=== PATIENT | female | born 1995 | race Caucasian/White ===

== ENCOUNTER 2017-03-31 01:32 | Emergency (ER) | payer SELFPAY ==
[2017-03-31] MEDS ORDERED: Zofran 4 MG/2 ML VIAL IV ONE (02:02)
[2017-03-31] MEDS ORDERED: Sodium Chloride 0.9% 1000 ML 1,000 ML IV STA (02:02)
[2017-03-31] MEDS ORDERED: Zofran 4 MG/2 ML VIAL ONE (02:13)
[2017-03-31] MEDS ORDERED: Sodium Chloride 0.9% 1000 ML 1,000 ML ONE (02:13)
[2017-03-31 02:14] LABS: BASOPHIL % 0.3 % (0.0-0.4); Eosinophil % 1.2 % (0.00-5.0); Granulocytes % 60.8 % (36.0-66.0); Lymphocytes % 29.8 % (24.0-44.0); Mean Cell Volume 84.3 fl (78-100); Mean Corpuscular Hemoglobin 29.5 pg (26-32); Mean Platelet Volume 10.3 fl (6-9.5); Monocytes % 7.9 % (0.0-12.0); Platelet Count 296 K/mm3 (150-450); Red Blood Count 5.48 M/mm3 (4.1-5.4); Red Cell Distribution Width 12.5 % (11.5-14.0); White Blood Count 10.1 K/mm3 (4.0-10.5)
[2017-03-31 02:20] LABS: LIPASE 166 U/L (73-393)
[2017-03-31 02:23] LABS: ANION GAP 13.7 MEQ/L (5-15); BLOOD UREA NITROGEN 14 mg/dL (9-20); CHLORIDE 107 mEq/L (98-107); Carbon Dioxide 25.5 mEq/L (21-32); Glucose 102 MG/DL (70-110); Potassium 3.9 mEq/L (3.5-5.1); SODIUM 142 mEq/L (136-145)
[2017-03-31 02:49] LABS: ADD URINE CULTURE? NO (NO); Bilirubin NEGATIVE (NEGATIVE); Blood NEGATIVE Ery/ul (0-5); COMPLETE URINE MICROSCOPIC? NO; Collection Type CATH; Glucose NEGATIVE (NEGATIVE); Leukocyte Esterase NEGATIVE (NEGATIVE)
--- NOTE | 2017-03-31 03:38 | ERPHSYRPT ---
- History of Present Illness Time Seen by Provider: 03/31/17 01:40 Historian: patient Exam Limitations: clinical condition Patient Subjective Stated Complaint: "I have had the pain all day, but when I got to work, it was alot worse. I was outside talking to my boyfriend. i walked back in and just remember falling. My head didn't start hurting until I fell. The pain in my side is like a piercing pain. 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 STATES HAD SYNCOPE EPISODE TONIGHT, STRUCK HER FOREHEAD IN PARKING LOT AT WORK AND HAS NECK PAIN. DENIES LOST OF CONSCIOUSNESS, BLURRED VISION, NUMBNESS , TINGLING OR WEAKNESS IN EXTREMITIES. Timing/Duration: today Activities at Onset: none Quality: cramping Abdominal Pain Onset Location: generalized abdomen Pain Radiation: no radiation Severity of Pain-Max: moderate Severity of Pain-Current: moderate Modifying Factors: Improves With: nothing Associated Symptoms: nausea Previous symptoms: no prior history Allergies/Adverse Reactions: No Known Drug Allergies Allergy (Unverified 10/30/12 16:50) Home Medications: No Home Meds 10/30/12 [History] Hx Tetanus, Diphtheria Vaccination/Date Given: Yes Hx Influenza Vaccination/Date Given: No Hx Pneumococcal Vaccination/Date Given: No - Review of Systems Constitutional: No Fever, No Chills Eyes: No Symptoms Ears, Nose, & Throat: No Symptoms Respiratory: No Symptoms, No Cough, No Dyspnea Cardiac: No Symptoms, No Chest Pain, No Edema, No Syncope Abdominal/Gastrointestinal: Abdominal Pain, Constipation, No Nausea, No Vomiting , No Diarrhea Genitourinary Symptoms: No Symptoms, Flank Pain, No Dysuria Musculoskeletal: No Symptoms, Injury, No Back Pain, No Neck Pain Skin: No Rash Neurological: No Dizziness, No Focal Weakness, No Sensory Changes Psychological: No Symptoms Endocrine: No Symptoms All Other Systems: Reviewed and Negative - Past Medical History Pertinent Past Medical History: No - Past Surgical History Past Surgical History: No - Social History Smoking Status: Current every day smoker How long have you smoked: 1/2 ppd Exposure to second hand smoke: No Drug Use: none Patient Lives Alone: No - Female History Hx Last Menstrual Period: 03/30/17 Hx Now: No - Nursing Vital Signs Nursing Vital Signs: Initial Vital Signs Temperature 97.7 F 03/31/17 01:33 Pulse Rate 82 03/31/17 01:33 Respiratory Rate 16 03/31/17 01:33 Blood Pressure 118/76 03/31/17 01:33 O2 Sat by Pulse Oximetry 99 03/31/17 01:33 Pain Scale Pain Intensity 4 - Physical Exam General Appearance: no apparent distress, alert Eye Exam: PERRL/EOMI, eyes nml inspection Ears, Nose, Throat Exam: normal ENT inspection, pharynx normal, moist mucous membranes Neck Exam: normal inspection, non-tender, supple, full range of motion Respiratory Exam: normal breath sounds, lungs clear, No respiratory distress Cardiovascular Exam: regular rate/rhythm, normal heart sounds Gastrointestinal/Abdomen Exam: soft, normal bowel sounds, No tenderness ( PERIUMBILICAL TENDERNESS), No mass Back Exam: normal inspection, normal range of motion, CVA tenderness (LEFT CVA TENDERNESS), No vertebral tenderness Extremity Exam: normal inspection, normal range of motion, pelvis stable Neurologic Exam: alert, oriented x 3, cooperative, normal mood/affect, nml cerebellar function, sensation nml, No motor deficits Skin Exam: normal color, warm, dry SpO2 Interpretation: normal SpO2: 99 Oxygen Delivery: Room Air - CT Exams Cervical Spine CT Interpretation: Tele-radiologist Report (NO EVIDENCE OF FRACTURE OR DISLOCATION) Head CT Interpretation: Tele-radiologist Report, No/Intracranial Hemorrhag Abdomen/Pelvis CT Interpretation: Tele-radiologist Report (NO EVIDENCE OF ACUTE INTRA- ABDOMINAL PATHOLOGY) Ordered Tests: Active Orders 24 hr Category Date Time Status IV Insertion STAT Care 03/31/17 02:02 Active ABDOMEN AND PELVIS W CONTRAST [CT] Stat Exams 03/31/17 02:03 Taken CERVICAL SPINE WO CONTRAST [CT] Stat Exams 03/31/17 02:05 Taken HEAD WITHOUT CONTRAST [CT] Stat Exams 03/31/17 02:05 Taken AMYLASE Stat Lab 03/31/17 02:11 Completed BMP Stat Lab 03/31/17 02:11 Completed CBC W DIFF Stat Lab 03/31/17 02:11 Completed HCG,QUALITATIVE URINE Stat Lab 03/31/17 02:44 Completed LIPASE Stat Lab 03/31/17 02:11 Completed UA W/RFX UR CULTURE Stat Lab 03/31/17 02:26 Completed Medication Summary Discontinued Medications Generic Name Dose Route Start Last Admin Trade Name Flynn PRN Reason Stop Dose Admin Hydromorphone HCl 1 mg 03/31/17 03:44 03/31/17 03:51 Hydromorphone 1 Mg/Ml Ampule IV 03/31/17 03:45 1 mg STAT ONE Administration Hydromorphone HCl Confirm 03/31/17 03:51 Hydromorphone 1 Mg/Ml Ampule Administered 03/31/17 03:52 Dose 1 mg .ROUTE .STK-MED ONE Sodium Chloride 1,000 mls @ 999 mls/hr 03/31/17 02:02 03/31/17 02:23 Sodium Chloride 0.9% 1000 Ml IV 03/31/17 03:02 999 mls/hr .Q1H1M STA Administration Sodium Chloride Confirm 03/31/17 02:13 Sodium Chloride 0.9% 1000 Ml Administered 03/31/17 02:14 Dose 1,000 mls @ ud .ROUTE .STK-MED ONE Ondansetron HCl 4 mg 03/31/17 02:02 03/31/17 02:23 Zofran 4 Mg/2 Ml Vial IV 03/31/17 02:03 4 mg STAT ONE Administration Ondansetron HCl Confirm 03/31/17 02:13 Zofran 4 Mg/2 Ml Vial Administered 03/31/17 02:14 Dose 4 mg .ROUTE .STK-MED ONE Lab/Rad Data: Laboratory Result Diagrams 03/31/17 02:11 03/31/17 02:11 Laboratory Results 03/31/17 03/31/17 03/31/17 Range/Units 02:44 02:26 02:11 WBC (4.0-10.5) K/mm3 RBC (4.1-5.4) M/mm3 Hgb (12.0-16.0) gm/dl Hct (35-47) % MCV (78-100) fl MCH (26-32) pg MCHC (32-36) g/dl RDW (11.5-14.0) % Plt Count (150-450) K/mm3 MPV (6-9.5) fl Gran % (36.0-66.0) % Lymphocytes % (24.0-44.0) % Monocytes % (0.0-12.0) % Eosinophils % (0.00-5.0) % Basophils % (0.0-0.4) % Basophils # (0-0.4) Sodium 142 (136-145) mEq/L Potassium 3.9 (3.5-5.1) mEq/L Chloride 107 (98-107) mEq/L Carbon Dioxide 25.5 (21-32) mEq/L Anion Gap 13.7 (5-15) MEQ/L BUN 14 (9-20) mg/dL Creatinine 0.95 (0.55-1.30) mg/dl Estimated GFR > 60 ML/MIN Glucose 102 (70-110) MG/DL Calcium 8.5 (8.5-10.1) mg/dL Amylase (25-115) U/L Lipase (73-393) U/L Ur Collection Type CATH Urine Color YELLOW (YELLOW) Urine Appearance CLEAR (CLEAR) Urine pH 5.0 (5-6) Ur Specific [place] 1.025 (1.005-1.025) Urine Protein NEGATIVE (Negative) Urine Ketones NEGATIVE (NEGATIVE) Urine Blood NEGATIVE (0-5) [place]/ul Urine Nitrite NEGATIVE (NEGATIVE) Urine Bilirubin NEGATIVE (NEGATIVE) Urine Urobilinogen NORMAL (0-1) mg/dL Ur Leukocyte Esterase NEGATIVE (NEGATIVE) Urine Glucose NEGATIVE (NEGATIVE) mg/dL Urine HCG, Qual NEGATIVE (Negative) Specimen Received 03/31/17 0230 03/31/17 03/31/17 Range/Units 02:11 02:11 WBC 10.1 (4.0-10.5) K/mm3 RBC 5.48 H (4.1-5.4) M/mm3 Hgb 16.2 H (12.0-16.0) gm/dl Hct 46.2 (35-47) % MCV 84.3 (78-100) fl MCH 29.5 (26-32) pg MCHC 35.1 (32-36) g/dl RDW 12.5 (11.5-14.0) % Plt Count 296 (150-450) K/mm3 MPV 10.3 H (6-9.5) fl Gran % 60.8 (36.0-66.0) % Lymphocytes % 29.8 (24.0-44.0) % Monocytes % 7.9 (0.0-12.0) % Eosinophils % 1.2 (0.00-5.0) % Basophils % 0.3 (0.0-0.4) % Basophils # 0.03 (0-0.4) Sodium (136-145) mEq/L Potassium (3.5-5.1) mEq/L Chloride (98-107) mEq/L Carbon Dioxide (21-32) mEq/L Anion Gap (5-15) MEQ/L BUN (9-20) mg/dL Creatinine (0.55-1.30) mg/dl Estimated GFR ML/MIN Glucose (70-110) MG/DL Calcium (8.5-10.1) mg/dL Amylase 37 (25-115) U/L Lipase 166 (73-393) U/L Ur Collection Type Urine Color (YELLOW) Urine Appearance (CLEAR) Urine pH (5-6) Ur Specific [place] (1.005-1.025) Urine Protein (Negative) Urine Ketones (NEGATIVE) Urine Blood (0-5) [place]/ul Urine Nitrite (NEGATIVE) Urine Bilirubin (NEGATIVE) Urine Urobilinogen (0-1) mg/dL Ur Leukocyte Esterase (NEGATIVE) Urine Glucose (NEGATIVE) mg/dL Urine HCG, Qual (Negative) Specimen Received - Progress Progress Note: 03/31/17 03:41 PATIENT GIVEN IV NORMAL SALINE 1 LITER OVER 1 HOUR., ZOFRAN 4MG. DILAUDI 1MG IV Counseled pt/family regarding: lab results, diagnosis, need for follow-up, rad results - Departure Time of Disposition: 04:55 Departure Disposition: Home Clinical Impression: ACUTE RENAL COLIC Condition: Stable Critical Care Time: No Additional Instructions: TYLENOL OR MOTRIN NEEDED FOR PAIN DISCOMFORT. CONSULT YOUR FAMILY PHYSICIAN FOR FOLLOWUP IN 1 WEEK.
[2017-03-31] MEDS ORDERED: Hydromorphone 1 mg/ml Ampule IV ONE (03:44)
[2017-03-31] MEDS ORDERED: Hydromorphone 1 mg/ml Ampule ONE (03:51)
[2017-03-31 04:02] VITALS: O2SAT 99
[2017-03-31 04:51] VITALS: BP 112/55; PULSE 74
--- NOTE | 2017-03-31 08:42 | XRAY ---
Indication: Headache following fall. Multiple contiguous axial images obtained through the head without contrast. Comparison: None Normal appearing brain parenchyma, ventricles, and bony calvarium. Visualized paranasal sinuses and mastoid air cells are clear. Impression: Normal CT head without contrast exam. Comment: Preliminary interpretation was made by [facility]. No discrepancy. CT DI 52.42
--- NOTE | 2017-03-31 08:44 | XRAY ---
Indication: Neck pain following fall. Multiple contiguous axial images obtained through the cervical spine. Sagittal and coronal reformatted images obtained. Comparison: None Axial images negative for acute fracture, suspicious bony lesions, or spinal canal stenosis. Sagittal and coronal reformatted images demonstrates straightening of the cervical lordosis, positional versus paraspinal muscular spasm. Disc spaces maintained. No acute compression fracture, subluxation, or jumped facet. Normal-appearing craniocervical junction. Visualized noncontrasted soft tissues including lung apices unremarkable. CT head reported separately. Impression: Negative acute fracture/subluxation. Lordotic straightening, positional versus paraspinal spasm. Comment: Preliminary interpretation was made by [facility]. No discrepancy. CT DI 106.73
--- NOTE | 2017-03-31 08:45 | XRAY ---
Indication: Left upper quadrant pain, nausea, and vomiting. Severe menstrual cramping. Multiple contiguous axial images obtained through the abdomen and pelvis using 80 cc Isovue 370 contrast only. Comparison: None Lung bases are clear. Heart is not enlarged. Stomach is distended with fluid. Noncontrasted stomach and bowel loops appear nonobstructed. Gallbladder partially contracted without gallstones or biliary distention. No free fluid/air. There is a tampon in situ. Remaining liver, gallbladder, pancreas, spleen, adrenal glands, kidneys, ureters, bladder, uterus, and aorta appear unremarkable. No pathologic retroperitoneal lymphadenopathy. Osseous structures intact. Impression: CT abdomen/pelvis with contrast exam is negative. Comment: Preliminary interpretation was made by [facility]. No discrepancy. CT DI 22.68
== END 2017-03-31 04:57 | disposition home or self-care (01) ==
LOC: ED 01:32
DX: N23 Unspecified renal colic (principal); R10.9 Unspecified abdominal pain; R55 Syncope and collapse; M54.2 Cervicalgia; R11.0 Nausea; K59.00 Constipation, unspecified
CPT/HCPCS: 36000; 36415; 70450; 72125; 74177; 80048; 81002; 82150; 83690; 84703; 85025; 96360; 96374; 96375; 99284; J1170; J2405; P9612

== ENCOUNTER 2018-06-25 07:25 | Observation (INO) | payer OTHER ==
[2018-06-25] MEDS ORDERED: PITOCIN 30 UNITS/ LR 500 ML 500 ML IV SCH (07:30)
[2018-06-25] MEDS ORDERED: Lactated Ringers 1,000 ML IV SCH (07:30)
[2018-06-25 08:06] VITALS: O2SAT 98
[2018-06-25 09:04] LABS: Amphetamine,Urine NEGATIVE (NEGATIVE); Barbiturate,Urine NEGATIVE (NEGATIVE); Benzodiazepine,Urine NEGATIVE (NEGATIVE); Cocaine,Urine NEGATIVE (NEGATIVE); Methadone,Urine NEGATIVE (NEGATIVE); Opiate,Urine NEGATIVE (NEGATIVE); PCP,Urine NEGATIVE (NEGATIVE); THC,Urine NEGATIVE (NEGATIVE)
[2018-06-25 09:11] LABS: Appearance SLIGHTLY CLOUDY (CLEAR); Bilirubin NEGATIVE (NEGATIVE); Blood NEGATIVE Ery/ul (0-5); Glucose NEGATIVE (NEGATIVE); Ketones NEGATIVE (NEGATIVE); Leukocyte Esterase LARGE (NEGATIVE); Nitrite NEGATIVE (NEGATIVE); Protein,Urine Dip NEGATIVE (Negative); Specific Gravity 1.009 (1.005-1.025); Urobilinogen NEGATIVE mg/dL (0-1)
[2018-06-25 09:28] VITALS: BP 129/82; PULSE 72
[2018-06-26] MEDS ORDERED: KEFLEX 500 MG PO SCH (22:00)
== END 2018-06-25 09:33 | disposition home or self-care (01) ==
LOC: OB 07:25
PROVIDERS: ADMIT Family Medicine; ATTEND Family Medicine
DX: Z34.03 Encounter for supervision of normal first pregnancy, third trimester (principal)
CPT/HCPCS: 80307; 81001; 87086; G0378

== ENCOUNTER 2018-06-25 16:04 | Inpatient (IN) | payer OTHER ==
[2018-06-25] MEDS ORDERED: XYLOCAINE 1% HCL 20 ML MDV IJ PRN (16:26)
[2018-06-25] MEDS ORDERED: STADOL 2 MG IV PRN (16:26)
[2018-06-25] MEDS ORDERED: Nubain 10 MG/ML IV PRN (16:26)
[2018-06-25] MEDS ORDERED: Zofran 4 MG/2 ML VIAL IV PRN (16:26)
[2018-06-25] MEDS ORDERED: TYLENOL EXTRA STRENGTH 500 MG PO PRN (16:26)
[2018-06-25] MEDS ORDERED: Phenergan 25 MG INJ IV PRN (16:26)
[2018-06-25] MEDS ORDERED: PITOCIN 30 UNITS/ LR 500 ML 500 ML IV SCH (16:30)
[2018-06-25 16:58] LABS: BASOPHIL % 0.2 % (0.0-0.4); Basophil (Absolute #) 0.03 (0-0.4); Eosinophil % 0.1 % (0.00-5.0); Eosinophil (Absolute #) 0.02 (0-0.5); Granulocyte Absolute (ANC) 14.84 (1.4-6.9); Granulocytes % 87.5 % (36.0-66.0); Hematocrit 37.9 % (35-47); Hemoglobin 13.4 gm/dl (12.0-16.0); Lymphocytes % 7.1 % (24.0-44.0); Mean Cell Volume 88.6 fl (78-100); Mean Corpuscular Hemoglobin 31.3 pg (26-32); Mean Corpuscular Hgb Concent. 35.4 g/dl (32-36); Mean Platelet Volume 10.7 fl (6-9.5); Monocyte (Absolute #) 0.87 (0.0-1.3); Monocytes % 5.1 % (0.0-12.0); Platelet Count 210 K/mm3 (150-450); Red Blood Count 4.28 M/mm3 (4.1-5.4)
[2018-06-25] MEDS ORDERED: Lactated Ringers 1,000 ML IV ONE (17:44)
[2018-06-25] MEDS ORDERED: Ephedrine Sulfate 50 MG/ML IV PRN (17:44)
[2018-06-25] MEDS: Lactated Ringers 1,000 ML IV SCH (18:14)
[2018-06-25] MEDS: OB EPIDURAL NAROPIN/SUFENTANIL IN NACL EPIDURAL PRN (20:04)
[2018-06-25 21:11] LABS: Appearance CLEAR (CLEAR); Bilirubin NEGATIVE (NEGATIVE); Blood NEGATIVE Ery/ul (0-5); Glucose NEGATIVE (NEGATIVE); Ketones MODERATE (NEGATIVE); Leukocyte Esterase NEGATIVE (NEGATIVE); Nitrite NEGATIVE (NEGATIVE); Protein,Urine Dip NEGATIVE (Negative); Specific Gravity 1.016 (1.005-1.025); Urobilinogen NEGATIVE mg/dL (0-1)
[2018-06-26 01:53] VITALS: O2SAT 98
[2018-06-26] MEDS: OB EPIDURAL NAROPIN/SUFENTANIL IN NACL EPIDURAL PRN (04:40)
[2018-06-26] MEDS ORDERED: Lactated Ringers 1,000 ML IV ONE (06:31)
[2018-06-26] MEDS: Lactated Ringers 1,000 ML IV SCH (06:32)
[2018-06-26] MEDS ORDERED: CORTISONE 1% CREAM TP PRN (15:07)
[2018-06-26] MEDS ORDERED: Mylicon 80MG PO PRN (15:07)
[2018-06-26] MEDS ORDERED: TUCKS TP PRN (15:07)
[2018-06-26] MEDS ORDERED: Anucort-HC SUPPOSITORY PR PRN (15:07)
[2018-06-26] MEDS ORDERED: Dermoplast Spray TP PRN (15:07)
[2018-06-26] MEDS ORDERED: Dulcolax 10 MG SUPP PR PRN (15:07)
[2018-06-26] MEDS ORDERED: LANSINOH 40 GM TOP PRN (15:07)
[2018-06-26] MEDS ORDERED: KEFLEX 500 MG ONE (21:22)
[2018-06-26] MEDS: Colace 100 MG PO SCH (21:33)
[2018-06-26] MEDS: KEFLEX 500 MG PO SCH (21:33)
[2018-06-27] MEDS: NORCO 5/325 MG PO PRN ×3 (00:34→18:47)
[2018-06-27 05:43] LABS: BASOPHIL % 0.1 % (0.0-0.4); Basophil (Absolute #) 0.02 (0-0.4); Eosinophil % 0.3 % (0.00-5.0); Eosinophil (Absolute #) 0.08 (0-0.5); Granulocyte Absolute (ANC) 19.26 (1.4-6.9); Granulocytes % 83.6 % (36.0-66.0); Hematocrit 31.7 % (35-47); Hemoglobin 10.9 gm/dl (12.0-16.0); Lymphocyte (Absolute #) 2.29 (1.0-4.6); Lymphocytes % 9.9 % (24.0-44.0); Mean Cell Volume 90.8 fl (78-100); Mean Corpuscular Hemoglobin 31.2 pg (26-32); Mean Corpuscular Hgb Concent. 34.4 g/dl (32-36); Mean Platelet Volume 11.3 fl (6-9.5); Monocyte (Absolute #) 1.41 (0.0-1.3); Monocytes % 6.1 % (0.0-12.0); Platelet Count 178 K/mm3 (150-450); Red Blood Count 3.49 M/mm3 (4.1-5.4); Red Cell Distribution Width 13.4 % (11.5-14.0); White Blood Count 23.1 K/mm3 (4.0-10.5)
[2018-06-27] MEDS: MOTRIN 400 MG PO PRN ×2 (08:05→21:22)
[2018-06-27] MEDS: Colace 100 MG PO SCH ×2 (09:11→21:23)
[2018-06-27] MEDS: FERREX 150 PO SCH (09:11)
[2018-06-27] MEDS: KEFLEX 500 MG PO SCH ×3 (14:29→22:19)
[2018-06-28 06:04] LABS: Hematocrit 31.4 % (35-47); Hemoglobin 10.7 gm/dl (12.0-16.0); Mean Corpuscular Hgb Concent. 34.1 g/dl (32-36); Mean Platelet Volume 10.9 fl (6-9.5); Platelet Count 174 K/mm3 (150-450); Red Blood Count 3.45 M/mm3 (4.1-5.4); Red Cell Distribution Width 13.4 % (11.5-14.0); White Blood Count 14.4 K/mm3 (4.0-10.5)
--- NOTE | 2018-06-28 08:18 | PCM.DS ---
Discharge Summary Date of Admission: 06/25/18 18:30 Admitting Physician: JOSIAH CLAY Consults: Consults on Case 06/25/18 17:44 Notify Anesthesia Provider PRN Primary Care Provider: JOSIAH CLAY Allergies Allergies No Known Drug Allergies Allergy (Verified 06/25/18 16:31) Hospital Summary - Hospital Course Hospital Course: Pt came in at 40 weeks, , in active labor. She delivered a viable female weighing 6lb, 6oz; initial of 1 at 1 minute, then 8 at 10 minutes (for full details, see delivery note). Pt had a first degree labia majora laceration on the left but did not require sutures. She is . up out of bed and tolerating po well. Last night just used tylenol and ibuprofen. Bleeding is heavier than menses and no clots. - Vitals & Intake/Output Vital Signs: Vital Signs Temperature 98.0 F 06/28/18 02:00 Pulse Rate 61 06/28/18 02:00 Respiratory Rate 20 06/28/18 02:00 Blood Pressure 103/61 06/28/18 02:00 O2 Sat by Pulse Oximetry 98 06/26/18 01:00 Oxygen-Last Documented O2 Percentage 100% Intake & Output: Intake & Output 06/25/18 06/26/18 06/27/18 06/28/18 11:59 11:59 11:59 11:59 Intake Total 240 1180 Output Total 201 150 Balance 39 -150 1180 Weight 81.739 kg - Lab Result Diagrams: 06/28/18 05:26 Lab Results-Last 24 Hrs: Lab Results-Last 24 Hours 06/28/18 Range/Units 05:26 WBC 14.4 H (4.0-10.5) K/mm3 RBC 3.45 L (4.1-5.4) M/mm3 Hgb 10.7 L (12.0-16.0) gm/dl Hct 31.4 L (35-47) % MCV 91.0 (78-100) fl MCH 31.0 (26-32) pg MCHC 34.1 (32-36) g/dl RDW 13.4 (11.5-14.0) % Plt Count 174 (150-450) K/mm3 MPV 10.9 H (6-9.5) fl - Procedures and Test Procedures and Tests throughout Hospitalization: Therapy Orders & Screens 06/26/18 15:35 Standby Routine Comment: Diagnosis: labor Discharge Exam General Appearance: no apparent distress, alert Neurologic Exam: oriented x 3, cooperative Skin Exam: normal color, warm, dry, No rash Respiratory Exam: normal breath sounds, lungs clear, No crackles/rales, No rhonchi, No wheezing Cardiovascular Exam: regular rate/rhythm, normal heart sounds, No murmur Gastrointestinal/Abdomen Exam: soft, other (fundus firm approx 2cm superior to umbilicus) Extremity Exam: swelling (trace LE edema R>L) Back Exam: normal inspection, No rash Final Diagnosis/Problem List - Final Discharge Diagnosis/Problem (1) Status post vaginal delivery Current Visit: Yes Status: Acute Assessment & Plan: Doing great. home today. (2) Leukocytosis Current Visit: Yes Status: Acute Assessment & Plan: WBC elevated to 23.1 yesterday; 14.4 today. - Discharge Disposition: Home, Self-Care Condition: Good Prescriptions: New Ibuprofen 800 mg PO TID PRN #35 tablet MDD 3 PRN Reason: Pain Continue Loratadine 10 mg [Claritin 10 mg] 10 mg PO DAILY Ranitidine HCl 150 mg PO DAILY Vits W-Ca,Fe,FA(<1Mg) [] 1 each PO DAILY Cephalexin Mh 500 mg [Keflex 500 mg] 500 mg PO TID Follow up with: JOSIAH CLAY [Primary Care Provider] - 1 Week
[2018-06-28 08:44] LABS: BAND 7 % (0.0-2.0); Eosinophil 1 % (0.00-3.0); Lymphocytes 18 % (24-44); Monocyte 4 % (0.0-12.0); Neutrophils 70 % (36.0-66.0); Platelet Estimate NORMAL (NORMAL); Total Cells Counted 100
[2018-06-28] MEDS: FERREX 150 PO SCH (10:25)
[2018-06-28] MEDS: MOTRIN 400 MG PO PRN (10:25)
[2018-06-28] MEDS: Colace 100 MG PO SCH (10:26)
[2018-06-28] MEDS: KEFLEX 500 MG PO SCH (11:36)
[2018-06-28 11:42] VITALS: BP 119/79; PULSE 83
== END 2018-06-28 13:10 | disposition home or self-care (01) | DRG 807 ==
LOC: OB 16:04 → OBSVTOIN 18:30 → OB 18:30
PROVIDERS: ADMIT Family Medicine; ATTEND Family Medicine
PROC: 10E0XZZ Delivery of Products of Conception, External Approach (ICD-10-PCS; principal; 2018-06-26)
DX: O80 Encounter for full-term uncomplicated delivery (principal); Z37.0 Single live birth; Z3A.40 40 weeks gestation of pregnancy; D72.829 Elevated white blood cell count, unspecified; Z86.14 Personal history of Methicillin resistant Staphylococcus aureus infection
CPT/HCPCS: 36415; 80307; 81001; 81003; 85025; 87086; 94799; G0378; J2590; J2795; A9270-GY

== ENCOUNTER 2020-04-15 14:13 | Emergency (ER) | payer MEDICAID, OTHER ==
[2020-04-15] MEDS ORDERED: TORAdol 30 mg Injection IM ONE (14:41)
--- NOTE | 2020-04-15 14:53 | ERPHSYRPT ---
- History of Present Illness Time Seen by Provider: 04/15/20 14:45 Source: patient Exam Limitations: no limitations Patient Subjective Stated Complaint: Pt states "FOr the past 4 days my back has been getting worse and worse. I started to hurt on the right lower back and now it is the left. I have a knot on my lower left back." Triage Nursing Assessment: Pt presneted alert and oriented X 3, skin pwd. Pt ambulates with a hunched over limping gait. Pt in no apaprent respiratory distress. pt has musle tightness to lower left back. Physician History: Patient is a 24-year-old female presents to our ED with complaints of low back pain x4 days. Patient works at [employer]. Patient states she lifts 35 pound items frequently throughout the day. Patient believes that it is possible that this may have triggered her back pain. Pain described as a spasm sensation with tightening of her lumbar spine musculature. Pain improved with rest. Pain worse with movement and palpation. No change in bowel bladder function. No vaginal discharge. No recent back procedure. No fever. No saddle anesthesia. No chest pain or shortness of breath. Symptoms are localized. No lower extremity numbness tingling or weakness. Patient is otherwise healthy. She voices no other complaints at this time. Timing/Duration: day(s) (4 days.) Method of Injury: bending Quality: aching Back Pain Location: lumbar spine Severity of Pain-Max: moderate Severity of Pain-Current: mild Modifying Factors: Improves With: movement Associated Symptoms: muscle spasms, No fever, No chills, No urinary incontinence, No loss of bowel control, No constipation, No nausea, No vomiting, No light-headedness, No dizziness, No numbness in legs/feet, No weakness, No sensory/motor loss Allergies/Adverse Reactions: No Known Drug Allergies Allergy (Verified 06/25/18 16:31) Home Medications: Loratadine 10 mg [Claritin 10 mg] 10 mg PO DAILY 06/25/18 [History] Ranitidine HCl 150 mg PO DAILY 06/25/18 [History] Hx Tetanus, Diphtheria Vaccination/Date Given: No Hx Influenza Vaccination/Date Given: Yes Hx Pneumococcal Vaccination/Date Given: No Immunizations Up to Date: Yes Travel Risk - International Travel Have you traveled outside of the country in past 3 weeks: No - Coronavirus Screening Are you exhibiting any of the following symptoms?: No Close contact with a COVID-19 positive Pt in past 14-21 Days: No - Review of Systems Constitutional: No Symptoms, No Fever, No Chills Eyes: No Symptoms Ears, Nose, & Throat: No Symptoms Respiratory: No Symptoms, No Cough, No Dyspnea Cardiac: No Symptoms, No Chest Pain, No Edema, No Syncope Abdominal/Gastrointestinal: No Symptoms, No Abdominal Pain, No Nausea, No Vomiting, No Diarrhea Genitourinary Symptoms: No Symptoms, No Dysuria Musculoskeletal: No Symptoms, No Back Pain, No Neck Pain Skin: No Symptoms, No Rash Neurological: No Symptoms, No Dizziness, No Focal Weakness, No Sensory Changes Psychological: No Symptoms Endocrine: No Symptoms Hematologic/Lymphatic: No Symptoms Immunological/Allergic: No Symptoms All Other Systems: Reviewed and Negative - Past Medical History Pertinent Past Medical History: Yes Neurological History: No Pertinent History ENT History: No Pertinent History Cardiac History: No Pertinent History Respiratory History: Asthma Endocrine Medical History: No Pertinent History Musculoskeletal History: No Pertinent History GI Medical History: GERD History: No Pertinent History Psycho-Social History: No Pertinent History Female Reproductive Disorders: No Pertinent History Other Medical History: pt reports hx of asthma mostly in the winter months - Past Surgical History Past Surgical History: No Neuro Surgical History: No Pertinent History Cardiac: No Pertinent History Respiratory: No Pertinent History Gastrointestinal: No Pertinent History Genitourinary: No Pertinent History Musculoskeletal: No Pertinent History Female Surgical History: No Pertinent History - Social History Smoking Status: Former smoker How long have you smoked: 3 years Exposure to second hand smoke: Yes Drug Use: marijuana Patient Lives Alone: No - Female History Hx Last Menstrual Period: 03/02/2020 Hx Now: (possible) - Nursing Vital Signs Nursing Vital Signs: Initial Vital Signs Temperature 97.4 F 04/15/20 14:31 Pulse Rate 103 H 04/15/20 14:31 Respiratory Rate 22 04/15/20 14:31 Blood Pressure 111/68 04/15/20 14:31 O2 Sat by Pulse Oximetry 100 04/15/20 14:31 Pain Scale Pain Intensity [Left Lower 8 Back] Pain Intensity 4 - Physical Exam General Appearance: no apparent distress, alert Eye Exam: PERRL/EOMI, eyes nml inspection Neck Exam: normal inspection, non-tender, supple, full range of motion, No meningismus, No midline tenderness Respiratory Exam: normal breath sounds, lungs clear, No respiratory distress Cardiovascular Exam: regular rate/rhythm, normal heart sounds Gastrointestinal Exam: soft, No tenderness, No mass Back Exam: normal inspection, other (Bilateral lumbar paraspinal musculature spasms. Overlying soft tissue intact.) Extremity Exam: normal inspection, normal range of motion, other (Patient neurovascular intact distally. 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 as tested, normal mood/affect, nml station & gait, sensation nml, No motor deficits Skin Exam: normal color, warm, dry, No rash SpO2 Interpretation: normal SpO2: 100 O2 Delivery: Room Air - Course Nursing assessment & vital signs reviewed: Yes Ordered Tests: Active Orders 24 hr Category Date Time Status CULTURE,URINE Stat Lab 04/15/20 14:42 Received HCG,QUALITATIVE URINE Stat Lab 04/15/20 14:42 Completed UA W/RFX UR CULTURE Stat Lab 04/15/20 14:42 Completed Medication Summary Discontinued Medications Generic Name Dose Route Start Last Admin Trade Name Freq PRN Reason Stop Dose Admin Acetaminophen 975 mg 04/15/20 16:07 Tylenol 325 Mg PO 04/15/20 16:08 STAT STA Ketorolac Tromethamine 30 mg 04/15/20 14:41 04/15/20 15:06 Toradol 30 Mg Injection IM 04/15/20 14:42 30 mg STAT ONE Administration Ketorolac Tromethamine Confirm 04/15/20 15:05 Toradol 30 Mg Injection Administered 04/15/20 15:06 Dose 30 mg .ROUTE .[employer] ONE Lab/Rad Data: Laboratory Results 04/15/20 04/15/20 Range/Units 14:42 14:42 Urine Color YELLOW (YELLOW) Urine Appearance CLOUDY (CLEAR) Urine pH 7.0 (5-6) Ur Specific [place] 1.012 (1.005-1.025) Urine Protein NEGATIVE (Negative) Urine Ketones NEGATIVE (NEGATIVE) Urine Blood NEGATIVE (0-5) [place]/ul Urine Nitrite NEGATIVE (NEGATIVE) Urine Bilirubin NEGATIVE (NEGATIVE) Urine Urobilinogen 2 (0-1) mg/dL Ur Leukocyte Esterase LARGE (NEGATIVE) Urine WBC (Auto) 26-50 (0-5) /HPF Urine RBC (Auto) 6-10 (0-2) /HPF U Epithel Cells (Auto) MODERATE (FEW) /HPF Urine Bacteria (Auto) MODERATE (NEGATIVE) /HPF Urine Mucus (Auto) SLIGHT (NEGATIVE) /HPF Urine Culture Reflexed YES (NO) Urine Glucose NEGATIVE (NEGATIVE) mg/dL Urine HCG, Qual POSITIVE (Negative) - Progress Progress: improved Progress Note: 04/15/20 16:09 Patient reassessed. Pain improved. Vitals stable. Patient has no pelvic pain or vaginal discharge. Incidental new diagnosis of observed. We will treat patient's back pain. Patient also has UTI. Antibiotics forwarded to patient's pharmacy. Patient follow-up with her primary care doctor for further evaluation and treatment of her . Counseled pt/family regarding: lab results, diagnosis, need for follow-up - Departure Departure Disposition: Home Clinical Impression: Back pain, UTI (urinary tract infection), Condition: Stable Critical Care Time: No Referrals: JOSIAH CLAY [Primary Care Provider] - Prescriptions: Nitrofurantoin Macro 100 mg [Macrobid 100MG Capsule] 100 mg PO BID 7 Days #14 capsule
[2020-04-15] MEDS ORDERED: TORAdol 30 mg Injection ONE (15:05)
[2020-04-15 15:28] VITALS: PULSE 60
[2020-04-15 15:51] LABS: Appearance CLOUDY (CLEAR); Bacteria MODERATE /HPF (NEGATIVE); Bilirubin NEGATIVE (NEGATIVE); Blood NEGATIVE Ery/ul (0-5); Epithelial Cells MODERATE /HPF (FEW); Glucose NEGATIVE (NEGATIVE); Ketones NEGATIVE (NEGATIVE); Leukocyte Esterase LARGE (NEGATIVE); Mucus SLIGHT /HPF (NEGATIVE); Nitrite NEGATIVE (NEGATIVE); Protein,Urine Dip NEGATIVE (Negative); Specific Gravity 1.012 (1.005-1.025); Urobilinogen 2 mg/dL (0-1); WBC 26-50 /HPF (0-5)
[2020-04-15 16:07] VITALS: BP 106/50; O2SAT 100
[2020-04-15] MEDS ORDERED: TYLENOL 325 MG PO STA (16:07)
[2020-04-15] MEDS ORDERED: TYLENOL 325 MG ONE (16:09)
== END 2020-04-15 16:19 | disposition home or self-care (01) ==
LOC: ED 14:13
DX: M54.5 Low back pain (principal); X50.3XXA Overexertion from repetitive movements, initial encounter; Y93.89 Activity, other specified; Y92.89 Other specified places as the place of occurrence of the external cause; Y99.0 Civilian activity done for income or pay; O23.41 Unspecified infection of urinary tract in pregnancy, first trimester; Z3A.00 Weeks of gestation of pregnancy not specified
CPT/HCPCS: 81001; 84703; 87086; 96372; 99284; J1885; A9270-GY

== ENCOUNTER 2020-11-11 14:36 | Observation (INO) | payer OTHER ==
[2020-11-11 15:15] VITALS: BP 108/60; PULSE 77
== END 2020-11-11 15:45 | disposition home or self-care (01) ==
LOC: OB 14:36
PROVIDERS: ADMIT Family Medicine; ATTEND Family Medicine
DX: Z34.83 Encounter for supervision of other normal pregnancy, third trimester (principal); Z3A.35 35 weeks gestation of pregnancy
CPT/HCPCS: 59025; G0378

== ENCOUNTER 2020-11-13 06:09 | Observation (INO) | payer OTHER ==
[2020-11-13 06:48] LABS: Amphetamine,Urine NEGATIVE (NEGATIVE); Barbiturate,Urine NEGATIVE (NEGATIVE); Benzodiazepine,Urine NEGATIVE (NEGATIVE); Cocaine,Urine NEGATIVE (NEGATIVE); Methadone,Urine NEGATIVE (NEGATIVE); Opiate,Urine NEGATIVE (NEGATIVE); PCP,Urine NEGATIVE (NEGATIVE); THC,Urine POSITIVE (NEGATIVE)
[2020-11-13 06:54] VITALS: O2SAT 98
[2020-11-13 07:12] LABS: Appearance SLIGHTLY CLOUDY (CLEAR); Bacteria RARE /HPF (NEGATIVE); Bilirubin NEGATIVE (NEGATIVE); Blood NEGATIVE Ery/ul (0-5); Epithelial Cells RARE /HPF (FEW); Glucose NEGATIVE (NEGATIVE); Ketones NEGATIVE (NEGATIVE); Leukocyte Esterase MODERATE (NEGATIVE); Nitrite NEGATIVE (NEGATIVE); Protein,Urine Dip NEGATIVE (Negative); RBC 0-2 /HPF (0-2); Specific Gravity 1.009 (1.005-1.025); Urobilinogen NEGATIVE mg/dL (0-1)
[2020-11-13 09:26] VITALS: BP 105/67; PULSE 60
== END 2020-11-13 09:05 | disposition home or self-care (01) ==
LOC: OB 06:09
PROVIDERS: ADMIT Family Medicine; ATTEND Family Medicine
DX: Z34.83 Encounter for supervision of other normal pregnancy, third trimester (principal)
CPT/HCPCS: 59025; 80307; 81001; G0378

== ENCOUNTER 2020-12-09 15:07 | Inpatient (IN) | payer OTHER ==
[2020-12-09] MEDS ORDERED: XYLOCAINE 1% HCL 20 ML MDV IJ PRN (16:00)
[2020-12-09] MEDS ORDERED: Zofran 4 MG/2 ML VIAL IV PRN (16:00)
[2020-12-09] MEDS ORDERED: PITOCIN 30 UNITS/ LR 500 ML 30 UNITS/500 ML IV.SOLN. IV SCH ×2 (16:00→23:30)
[2020-12-09] MEDS ORDERED: Ephedrine Sulfate 50 MG/ML IV PRN (16:51)
[2020-12-09] MEDS ORDERED: Lactated Ringers 1,000 ML IV ONE (16:51)
[2020-12-09] MEDS ORDERED: OB EPIDURAL NAROPIN/SUFENTANIL IN NACL EPIDURAL PRN (16:51)
[2020-12-09 17:14] LABS: Absolute Neutrophil Ct (ANC) 8.57 (1.4-6.9); BASOPHIL % 0.3 % (0.0-0.4); Basophil (Absolute #) 0.03 (0-0.4); Eosinophil % 0.3 % (0.00-5.0); Eosinophil (Absolute #) 0.03 (0-0.5); Hematocrit 34.4 % (35-47); Hemoglobin 11.6 gm/dl (12.0-16.0); Lymphocyte (Absolute #) 1.72 (1.0-4.6); Lymphocytes % 15.8 % (24.0-44.0); Mean Cell Volume 90.3 fl (78-100); Mean Corpuscular Hemoglobin 30.4 pg (26-32); Mean Corpuscular Hgb Concent. 33.7 g/dl (32-36); Mean Platelet Volume 11.3 fl (7.5-11.0); Monocyte (Absolute #) 0.55 (0.0-1.3); Neutrophil % 78.6 % (36.0-66.0); Platelet Count 222 K/mm3 (150-450); Red Blood Count 3.81 M/mm3 (4.1-5.4); White Blood Count 10.9 K/mm3 (4.0-10.5)
[2020-12-09 17:29] LABS: Amphetamine,Urine NEGATIVE (NEGATIVE); Barbiturate,Urine NEGATIVE (NEGATIVE); Benzodiazepine,Urine NEGATIVE (NEGATIVE); Cocaine,Urine NEGATIVE (NEGATIVE); Methadone,Urine NEGATIVE (NEGATIVE); Opiate,Urine NEGATIVE (NEGATIVE); PCP,Urine NEGATIVE (NEGATIVE); THC,Urine POSITIVE (NEGATIVE)
[2020-12-09] MEDS: Lactated Ringers 1,000 ML IV SCH ×2 (19:23→22:04)
[2020-12-09] MEDS ORDERED: BRETHINE 1 MG/ML SQ PRN (23:17)
[2020-12-10] MEDS ORDERED: TUCKS TP PRN (03:19)
[2020-12-10] MEDS ORDERED: LANSINOH 40 GM TOP PRN (03:19)
[2020-12-10] MEDS ORDERED: Ambien 10 MG PO PRN (03:19)
[2020-12-10] MEDS ORDERED: Mylicon 80MG PO PRN (03:19)
[2020-12-10] MEDS ORDERED: NORCO 5/325 MG PO PRN (03:19)
[2020-12-10] MEDS ORDERED: CORTISONE 1% CREAM TP PRN (03:19)
[2020-12-10] MEDS ORDERED: TYLENOL EXTRA STRENGTH 500 MG PO PRN (03:19)
[2020-12-10] MEDS ORDERED: Dermoplast Spray TP PRN (03:19)
[2020-12-10] MEDS ORDERED: TUCKS TP ONE (03:21)
[2020-12-10] MEDS ORDERED: Dermoplast Spray ONE (03:21)
[2020-12-10] MEDS: MOTRIN 400 MG PO PRN ×3 (09:14→22:06)
[2020-12-10] MEDS: Colace 100 MG PO SCH ×2 (09:14→22:07)
[2020-12-10] MEDS: FERREX 150 PO SCH (09:14)
[2020-12-10] MEDS ORDERED: Adacel Vial IM ONE (10:00)
[2020-12-10] MEDS: TYLENOL EXTRA STRENGTH 500 MG PO PRN ×2 (12:11→18:34)
[2020-12-10 19:28] LABS: BASOPHIL % 0.3 % (0.0-0.4); Basophil (Absolute #) 0.03 (0-0.4); Eosinophil % 0.5 % (0.00-5.0); Eosinophil (Absolute #) 0.06 (0-0.5); Hematocrit 32.6 % (35-47); Lymphocyte (Absolute #) 2.27 (1.0-4.6); Lymphocytes % 18.9 % (24.0-44.0); Mean Cell Volume 90.6 fl (78-100); Mean Corpuscular Hemoglobin 30.6 pg (26-32); Mean Corpuscular Hgb Concent. 33.7 g/dl (32-36); Mean Platelet Volume 10.6 fl (7.5-11.0); Monocyte (Absolute #) 0.74 (0.0-1.3); Monocytes % 6.2 % (0.0-12.0); Neutrophil % 74.1 % (36.0-66.0); Platelet Count 200 K/mm3 (150-450)
[2020-12-11 00:20] VITALS: O2SAT 97
[2020-12-11] MEDS: MOTRIN 400 MG PO PRN (04:31)
--- NOTE | 2020-12-11 08:01 | PCM.DS ---
Discharge Summary Date of Admission: 12/09/20 19:53 Admitting Physician: JOSIAH ROBLES Consults: Consults on Case 12/10/20 03:37 Notify Physician ROUTINE Primary Care Provider: JOSIAH ROBLES Allergies Allergies TREE NUTS Allergy (Uncoded 12/09/20 17:51) Hospital Summary - Hospital Course Hospital Course: patient had with Dr Robles, with mild lochia. pain well controlled with tylenol and ibuprofen, no problems or concerns - Vitals & Intake/Output Vital Signs: Vital Signs Temperature 97.8 F 12/11/20 04:00 Pulse Rate 58 L 12/11/20 04:00 Respiratory Rate 18 12/11/20 04:00 Blood Pressure 98/72 12/11/20 04:00 O2 Sat by Pulse Oximetry 97 12/11/20 04:00 Intake & Output: Intake & Output 12/08/20 12/09/20 12/10/20 12/11/20 11:59 11:59 11:59 11:59 Intake Total 4034 950 Output Total 400 Balance 3634 950 Weight 71.214 kg - Lab Result Diagrams: 12/10/20 19:21 Lab Results-Last 24 Hrs: Lab Results-Last 24 Hours 12/10/20 Range/Units 19:21 WBC 12.0 H (4.0-10.5) K/mm3 RBC 3.60 L (4.1-5.4) M/mm3 Hgb 11.0 L (12.0-16.0) gm/dl Hct 32.6 L (35-47) % MCV 90.6 (78-100) fl MCH 30.6 (26-32) pg MCHC 33.7 (32-36) g/dl RDW 13.0 (11.5-14.0) % Plt Count 200 (150-450) K/mm3 MPV 10.6 (7.5-11.0) fl Gran % 74.1 H (36.0-66.0) % Eos # (Auto) 0.06 (0-0.5) Absolute Lymphs (auto) 2.27 (1.0-4.6) Absolute Monos (auto) 0.74 (0.0-1.3) Lymphocytes % 18.9 L (24.0-44.0) % Monocytes % 6.2 (0.0-12.0) % Eosinophils % 0.5 (0.00-5.0) % Basophils % 0.3 (0.0-0.4) % Absolute Granulocytes 8.90 H (1.4-6.9) Basophils # 0.03 (0-0.4) Micro Results-Entire Visit: Microbiology 12/10/20 00:30 Urine Culture - Final Catherized NO GROWTH Discharge Exam General Appearance: no apparent distress, alert Respiratory Exam: normal breath sounds, lungs clear, No respiratory distress Cardiovascular Exam: regular rate/rhythm, normal heart sounds Gastrointestinal/Abdomen Exam: soft, No tenderness, No mass Extremity Exam: normal inspection, normal range of motion Skin Exam: normal color, warm, dry Final Diagnosis/Problem List - Final Discharge Diagnosis/Problem (1) Vaginal delivery Current Visit: Yes Status: Acute Code(s): O80 - ENCOUNTER FOR FULL-TERM UNCOMPLICATED DELIVERY (2) () Current Visit: Yes Status: Acute Code(s): Z78.9 - OTHER SPECIFIED HEALTH STATUS - Discharge Disposition: Home, Self-Care Condition: Stable Prescriptions: Continue Famotidine 20 mg [Pepcid 20 MG] 20 mg PO BID Non-Formulary Drug [Non-Formulary Bulk Item] 1 each [facility] Follow up with: JOSIAH ROBLES [Primary Care Provider] -
[2020-12-11] MEDS: Colace 100 MG PO SCH (09:30)
[2020-12-11] MEDS: FERREX 150 PO SCH (09:30)
[2020-12-11 15:05] VITALS: BP 112/75; PULSE 61
== END 2020-12-11 14:55 | disposition home or self-care (01) | DRG 807 ==
LOC: OB 16:27 → OBSVTOIN 19:53 → OB 19:53
PROVIDERS: ADMIT Family Medicine; ATTEND Family Medicine
PROC: 10E0XZZ Delivery of Products of Conception, External Approach (ICD-10-PCS; principal; 2020-12-10)
DX: O80 Encounter for full-term uncomplicated delivery (principal); Z37.0 Single live birth; Z3A.39 39 weeks gestation of pregnancy
CPT/HCPCS: 36415; 80307; 81003; 82947; 85025; 87086; G0378; J2405; J2590; J2795; A9270-GY

== ENCOUNTER 2023-10-10 11:06 | Day surgery (SDC) | payer OTHER ==
--- NOTE | 2023-10-07 15:33 | HP ---
PROCEDURE DATE: 10/10/2023 HISTORY OF PRESENT ILLNESS: 28 year-old with nausea, vomiting, and upper abdominal pain a little bit slightly towards the left at times. US showed cholelithiasis in July 2023. PAST MEDICAL HISTORY: Asthma, depression, migraines, bipolar. CURRENT MEDICATIONS: Viibryd. ALLERGIES: ZOFRAN CAN CAUSE EXTREME VOMITING. PAST SURGICAL HISTORY: Had tubal in the past, D&C and endometrial ablation in the past. FAMILY HISTORY: Negative with regards to this problem. SOCIAL HISTORY: Former smoker. Occasional alcohol use. Does do some vaping. REVIEW OF SYSTEMS: 12 systems reviewed. No chest pain or palpitations. Other systems negative or noncontributory other than above and per preadmission questionnaire. PHYSICAL EXAMINATION: Height 5' 1", BMI 22.67 GENERAL: No acute distress. HEENT: Sclerae nonicteric. NECK: No JVD. CHEST: Equal excursion. Nonlabored breathing. CVS: Regular rate and rhythm. ABDOMEN: Soft. EXTREMITIES: No significant edema. NEURO: Alert and oriented, moving extremities symmetrically. PSYCH: Appropriate mood and affect. SKIN: Dry. IMPRESSION: 1. ACUTE EXACERBATION OF CHRONIC CHOLECYSTITIS, SYMPTOMATIC CHOLELITHIASIS. RECOMMEND CHOLECYSTECTOMY. Shown the gallbladder pamphlet. Risks explained in detail, but not limited to, bleeding; infection; risk of trocar injury or hernia; risk of bowel, bladder, or blood vessel injury; small risk of bile leak, bile duct injury, or retained stone or sludge possibly requiring further procedures either open or endoscopic retrograde cholangiopancreatography; general risk of anesthesia, deep vein thrombosis, pulmonary embolism, or pneumonia; perioperative risks of aches, pains, bloating, constipation and/or loose stools possibly chronic in nature; possibility of no improvement in pre-op symptoms possibly requiring further work-up, studies, endoscopy, or referrals. Will proceed with laparoscopic cholecystectomy, possible open as an outpatient. Otherwise, continue medication for bipolar, depression, and migraines.
[~2023-10-10 11:06] MED LIST: Lactated Ringers 1,000 ML IV ONE; Sensorcaine 0.25% 10 ML ONE
[2023-10-10] MEDS: Lactated Ringers 1,000 ML IV SCH (11:13)
[2023-10-10] MEDS: MEFOXIN 2 GM PREMIX** 2 GM/50 ML ML IV SCH (11:14)
[2023-10-10 11:20] LABS: HCG URINE TEST NEGATIVE (NEGATIVE)
[2023-10-10 11:25] VITALS: RESP 18
[2023-10-10] MEDS ORDERED: Transderm Scop 1.5MG Patch ONE (11:46)
[2023-10-10] MEDS: Transderm Scop 1.5MG Patch TOP SCH (11:47)
[2023-10-10] MEDS: DECADRON 10MG INJ. IV SCH (11:52)
[2023-10-10] MEDS ORDERED: Sensorcaine 0.25% 10 ML ONE (12:20)
[2023-10-10] MEDS ORDERED: TORAdol 30 mg Injection ONE (12:38)
[2023-10-10] MEDS ORDERED: DIPRIVAN 200 MG/20 ML IV ONE (12:49)
[2023-10-10] MEDS ORDERED: Xylocaine-Mpf 2% 5 Ml Vial ONE (12:49)
[2023-10-10] MEDS ORDERED: Versed 2 MG/2 ML Injection ONE (12:50)
[2023-10-10] MEDS ORDERED: SUBLIMAZE 100 MCG/2 ML ONE ×2 (13:00→15:01)
[2023-10-10] MEDS ORDERED: Quelicin Fliptop 200 MG/10 ML ONE (13:02)
[2023-10-10] MEDS ORDERED: Zemuron 100 MG/10 ML ONE ×2 (13:05→14:09)
[2023-10-10] MEDS ORDERED: ATROPINE SULFATE 1MG ONE (13:13)
[2023-10-10] MEDS ORDERED: OFIRMEV 100 ML IV ONE (13:30)
[2023-10-10] MEDS ORDERED: DEXMEDETOMIDINE 80 MCG/20ML-NS IV ONE (13:51)
[2023-10-10] MEDS ORDERED: BRIDION 200MG/2ML IV ONE (14:09)
[2023-10-10] MEDS ORDERED: DEMEROL 50 MG ONE (14:32)
--- NOTE | 2023-10-10 15:07 | OP ---
SURGERY DATE/TIME: 10/10/2023 1342 PREOPERATIVE DIAGNOSIS: Acute exacerbation of chronic cholecystitis, symptomatic cholelithiasis. POSTOPERATIVE DIAGNOSIS: Acute exacerbation of chronic cholecystitis, symptomatic cholelithiasis. PROCEDURE: Laparoscopic cholecystectomy. SURGEON: Dr. Humberto Donaldson. ANESTHESIA: General. ESTIMATED BLOOD LOSS: Minimal. INDICATIONS: As noted above. Risks and benefits explained in detail but not limited to and consent obtained. DESCRIPTION OF PROCEDURE AND FINDINGS: The patient is taken to the operating room. General anesthesia is induced. Abdomen prepped and draped in usual sterile fashion. After official time out and no disagreement with planned procedure, a transverse incision made infraumbilical area as well as supraumbilical incision. Fascia grasped, pulled upward. Veress needle inserted and tested with saline. Pneumoperitoneum accomplished insufflating opening pressure of 0-15. An 11 mm bladeless port and camera were inserted without difficulty. There is no evidence of any intraabdominal injury secondary to trocar or Veress needle placement. Two right upper quadrant 5 mm ports, right upper quadrant and epigastric port placed. There is no evidence of any intraabdominal injury secondary to trocar insertion. Gallbladder had some chronic inflammation. The gallbladder is grasped and retracted over the edge of the liver and laterally away from Calot's triangle. Dissection carried posterior, lateral to anterior fashion. It was quite vascular but with slow careful dissection the cystic duct and main cystic artery isolated until critical view obtained anteriorly and posteriorly. Once this is accomplished, the gallbladder is slowly and carefully dissected free from its dense attachments to the liver bed. Again, it was quite vascular requiring clipping additional oozing side branches off the cystic vein and cystic arterial branches directly on the gallbladder wall as necessary. The gallbladder is slowly and carefully dissected free staying directly on the gallbladder wall. Just prior to releasing from final attachments to the anterior edge of the liver, the liver bed re-inspected. Clips noted in place in the cystic duct and cystic artery stumps. No signs of any active bleeding or bile leakage. It was felt there is no benefit of drain placement. The gallbladder was released from final attachments to anterior edge of the liver, placed in a bag pulled up and out the infraumbilical port site and passed off. The fascial defect closed with puncture closure device with #1 Vicryl under direct vision of the camera. Copious amount of irrigation accomplished lateral to the liver irrigating clear. Liver bed re-inspected one last time. Clips noted to be in place cystic duct and cystic artery stumps. No signs of any active bleeding or bile leakage. It was felt there was no benefit in drain placement. Pneumoperitoneum decompressed. The wound irrigated out. Skin incision closed with 4-0 Vicryl. 0.25% Marcaine local injected along the skin incision fascial defect. The patient tolerated the procedure well. There were no immediate complications. Findings discussed with the family out in the waiting area.
[2023-10-10] MEDS ORDERED: Compazine 10 MG/2 ML ONE (15:28)
[2023-10-10 16:49] VITALS: BP 117/67; PULSE 69; TEMP 97.1; O2SAT 100
== END 2023-10-10 17:38 | disposition home or self-care (01) ==
LOC: SDC 11:06
PROVIDERS: ATTEND Surgery
DX: K80.12 Calculus of gallbladder with acute and chronic cholecystitis without obstruction (principal)
CPT/HCPCS: 81025; J0330; J0461; J0694; J1100; J1885; J2175; J2250; J2704; J3010; A9270-GY